=== PATIENT | male | born 1950 | race Caucasian/White ===

== ENCOUNTER → 2024-07-12 08:11 | Outpatient (REF) | payer MEDICARE, SELFPAY ==
[2024-07-12 09:27] LABS: % Basophils 0.5 % (0-2); % Eosinophils 2.7 % (0-6); % Immature Granulocytes 0.2 % (0-0.5); % Lymphocytes 32.8 % (20.5-51.1); % Monocytes 12.9 % (1.7-9.3); % Neutrophils 50.9 % (42.2-75.2); Absolute Eosinophils 0.2 10^3/uL (0-0.7); Absolute Lymphocytes 1.8 10^3/uL (1.2-3.4); Absolute Monocytes 0.7 10^3/uL (0.1-0.6); Absolute Neutrophils 2.8 10^3/uL (1.4-6.5); Hematocrit 45.8 % (39.0-52.0); Mean Corp Hgb Conc. 34.9 g/dL (33.0-37.0); Mean Corpuscular Hgb 30.6 pg (27.0-31.0); Mean Corpuscular Volume 87.6 fL (80.0-94.0); Mean Platelet Volume 11.3 fL (7.4-10.4); Nucleated Red Blood Cells % 0 % (-); Platelet Count 195 10^3/uL (130-400); Red Blood Cell Count 5.23 10^6/uL (4.70-6.10); Red Cell Dist. Width 12.8 % (11.5-14.5); White Blood Cell Count 5.5 10^3/uL (4.8-10.8)
[2024-07-12 10:47] LABS: ALT (SGPT) 45 U/L (0-50); AST (SGOT) 41 U/L (17-59); Albumin 4.5 g/dl (3.5-5.0); Alkaline Phosphatase 53 U/L (38-126); Blood Urea Nitrogen 27 mg/dl (9-20); Calcium 9.5 mg/dl (8.4-10.2); Carbon Dioxide 25 mmol/L (22-30); Chloride 105 mmol/L (98-107); Glucose 120 mg/dl (70-99); HDL Cholesterol 49 mg/dl; LDL Cholesterol, Calculated 57 mg/dl; Potassium 4.8 mmol/L (3.5-5.1); Sodium 138 mmol/L (135-145); Total Bilirubin 1.1 mg/dl (0.2-1.3); Total Cholesterol 123 mg/dl (50-199); Total Protein 7.1 g/dl (6.3-8.2); Triglyceride 89 mg/dl (10-149); Very Low Density Lipoprotein 17 mg/dl (0-30); eGFR > 60.00
[2024-07-12 10:53] LABS: Glycohemoglobin (HgbA1c) 6.1 % (4.0-5.6)
[2024-07-12 11:09] LABS: PSA, Total - Screen 0.61 ng/ml (0.0-4.0); TSH 1.12 uIU/ml (0.47-4.68)
== END ==
LOC: REG 08:11
PROVIDERS: ATTENDING PHYSICIAN Family Medicine
DX: I10 Essential (primary) hypertension (principal); E78.5 Hyperlipidemia, unspecified; Z12.5 Encounter for screening for malignant neoplasm of prostate
CPT/HCPCS: 36415; 80053; 80061; 83036; 84443; 85025; G0103

== ENCOUNTER 2025-06-02 15:33 | Inpatient (IN) | payer MEDICARE, SELFPAY ==
[2025-06-02] VITALS (11 sets, daily range): BP systolic 122–168; BP diastolic 88–152; BMI 34.9; BMI 33.8
--- NOTE | 2025-06-02 11:01 | ED.GENMED ---
History of Present Illness
<Candace Arvizu PA-C - Last Filed: 06/02/25 16:10>
General
Chief Complaint: Numbness
Source: patient
Exam Limitations: none
Time Seen by Provider: 06/02/25 10:24
Nursing documentation reviewed up to this point in time: agreed with
History of Present Illness
History of Present Illness:
pt is a 74 y/o M with h/o HTN, HLD, alcohol use
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 then he
suddenly said the arm dropped ot his side (was weak) and had involuntary movements for about 2-3 minutes and fully resolved
he never had neck pain, headache, cp, sob etc
yesterday was fine
today again while at his computer but not while leaning on his L arm he started feeling the numbness again in the forearm into the hand
got up and moved to another chair and had the same thing happen, arm got weak, fell to his side and slid off and then started moving on its own 2-3 minutes
now fully resolved
feels fine
no headache, neck pain/neuro symptoms, gait problems
Past History
<Candace Arvizu PA-C - Last Filed: 06/02/25 16:10>
Past History
ED Past Medical History: HTN and Hypercholesterolemia
ED Past Surgical History: None
Social History
Tobacco: Non-smoker
Alcohol: Occasional (several nights a week)
Drug: None
Personal:
Living: with family
Review of Systems
<Candace Arvizu PA-C - Last Filed: 06/02/25 16:10>
Review of Systems
Allergies reviewed?: Yes
All Other Systems: Not applicable
Phy Exam
<Candace Arvizu PA-C - Last Filed: 06/02/25 16:10>
Physical Exam
Physical Exam:
GENERAL: Alert , in no apparent distress
HEAD: NCAT
EYE: pupils equal and reactive, no nystagmus, minimal photophobia
NECK: Supple,full rom, nontender
ENT: o/p clr, mmm.
CARDIAC: Regular rate and rhythm . no edema
LUNGS: Clear breath sounds bilaterally, no acute respiratory distress, no wheezes/rales/rhonchi
ABDOMEN: Soft, without focal tenderness, no r/g, no cvat
NEUROLOGICAL: Alert and orientedx 4, cn intact, no facial asymmetry, 5/5 strength in UE/LE, sensation intact, romberg neg, ambulates without assistance, neg pronator drift 2+ brachial and achilles reflexes
SKIN: Warm and dry, skin intact.
psoriasis rash plaques with scale to b/l elbows/knees extensor surfaces
MUSCULOSKELETAL: normal insepction, full rom notneder
PSYCH: Normal and appropriate interaction.
Course
<Candace Arvizu PA-C - Last Filed: 06/02/25 16:10>
Orders/Labs/Results
Orders:
Orders
06/02/25 10:49
Cardiac Monitoring- Treatment ONCE
06/02/25 10:52
Electrocardiogram (*1) Stat
Reason for Study: Other
Other Reason for Exam: Headache
EKG- Treatment ONCE
06/02/25 10:53
CT Head W/o Iv Contrast Urgent
Comment:
Reason For Exam: L arm numbness/weakness/twitching
06/02/25 11:50
CPK [Creatine Phosphokinase] Urgent
Complete Blood Count/With Diff Urgent
Comprehensive Metabolic Panel Urgent
Lyme Progressive Urgent
TSH Reflex To Free T4 Urgent
06/02/25 14:45
CARDIOLOGY CONSULT Routine
Consulting Provider: Oswaldo Kumar
Was physician already notified: Yes
NEUROLOGY CONSULT Routine
Consulting Provider: Leobardo Bridges
Was physician already notified: Yes
06/02/25 15:02
Admit/Transfer Patient As Directed
Co-Sign Provider:
Level of Care: Inpatient admission
Assign to:: Telemetry
[facility]
Reason for Telemetry: Arrhythmia
Date to Stop Telemetry: 06/05/25
Time to Stop Telemetry: 11:00
Reason for Hospitalization: possible CVA, new onset a. Fib
Expected length of stay greater than two midnights?: Yes
ELOS- Estimated Length of Stay in days: 2
I certify the patient meets the requirements for IP care: Yes
Heparin Protocol- PTT Orders As Directed
PTT per Heparin protocol: -Obtain CBC and baseline PTT - if not already collected.
-Obtain PTT 6 hours from start of infusion. Then, every 6 hours until 2 consecutive
PTT's are therapeutic. Then, PTT Daily.
-With each rate change, obtain PTT every 6 hours until 2 consecutive PTT's are
therapeutic. Then, PTT Daily.
Notify MD As Directed
Notify physician if: PTT is greater than or equal to 200.
PRN Pain Medication Management As Directed
May give lesser potent ordered pain med per pt: Yes
preference::
Protocol:: Medication orders for pain may be administered in a
manner that supports deferring to patient preference
when the pt is:
- Requesting an ordered lesser potent pain medication.
Least to most potent pain medications are defined
as: acetaminophen < NSAID < tramadol < opioids
(morphine, oxycodone, hydromorphone).
- Requesting a lesser dose of the same medication IF
ORDERED.
- Requesting a less intrusive route of administration
if both routes are prescribed by the provider (PO <
IV).
06/02/25 15:03
Code Status As Directed
Resuscitation Status: Full Code
06/02/25 15:12
Metoprolol [Lopressor] 25 mg PO NOW STA
06/02/25 15:15
Heparin 74056 Units/250 ml 25,000 units in 250 ml IV PER PROTOCOL
Weight to be used for heparin protocol in kilograms (kg):: 104
Protocol:: Cardiac Tx/Acute Coronary
PTT Goal Range to be used:: PTT 73 to 111 seconds
Order type:: Initial
INITIAL Infusion Dose (UNITS/KG/hr) & then follow protocol:: 12 units/kg/hr
Infusion Dose in UNITS/hr & then follow protocol (UNITS/hr):: 1,000
INFUSION RATE in mL/hr & then follow protocol (mL/hr):: 10
PTT less than or equal to 64 seconds:: Increase rate by 200 units/hr (+ 2 mL/hr)
PTT 64.1 to 72.9 seconds:: Increase rate by 100 units/hr (+ 1 mL/hr)
PTT 73 to 111 seconds:: Target Range. No change in rate.
PTT 111.1 to 130.9 seconds:: Decrease rate by 100 units/hr (- 1 mL/hr)
PTT 131 to 199.9 seconds:: HOLD for 1 hr. Then decrease rate by 200 units/hr (- 2 mL/hr)
PTT greater than or equal to 200 seconds:: HOLD for 2 hrs & Notify Provider. Then decrease by 200 units/hr (-
2 mL/hr)
Lab follow-up:: Each change, PTT q6h until 2 consecutive are therapeutic. Then PTT
daily.
06/02/25 15:47
PTT Urgent
Comment: Obtain baseline before beginning heparin infusion if not already collected
06/05/25 11:00
DC Protocol for Telemetry ONCE
Abnormal Lab Results
06/02/25
11:50
MPV 10.5 H fL
(7.4-10.4)
Absolute Monos (auto) 0.7 H 10^3/uL
(0.1-0.6)
Lymphocytes % 18.7 L %
(20.5-51.1)
Chloride 108 H mmol/L
(98-107)
Glucose 133 H mg/dl
(70-99)
Creatine Kinase 246 H U/L
(55-170)
06/02/25 11:50
06/02/25 11:50
Vital Signs
Initial and Last Documented VS:
Initial Vital Signs
Temp Pulse Resp Pulse Ox
36.6 C 69 18 97
06/02/25 10:12 06/02/25 10:12 06/02/25 10:12 06/02/25 10:12
Last Documented Vital Signs
Temp Pulse Resp BP Pulse Ox
36.6 C 91 18 122/88 98
06/02/25 10:12 06/02/25 14:45 06/02/25 14:45 06/02/25 14:17 06/02/25 14:45
<Sarah Schwartz MD - Last Filed: 06/02/25 12:49>
Orders/Labs/Results
Orders:
Orders
06/02/25 10:49
Cardiac Monitoring- Treatment ONCE
06/02/25 10:52
Electrocardiogram (*1) Stat
Reason for Study: Other
Other Reason for Exam: Headache
EKG- Treatment ONCE
06/02/25 10:53
CT Head W/o Iv Contrast Urgent
Comment:
Reason For Exam: L arm numbness/weakness/twitching
06/02/25 11:50
CPK [Creatine Phosphokinase] Urgent
Complete Blood Count/With Diff Urgent
Comprehensive Metabolic Panel Urgent
Lyme Progressive Urgent
TSH Reflex To Free T4 Urgent
06/02/25 14:45
CARDIOLOGY CONSULT Routine
Consulting Provider: Oswaldo Kumar
Was physician already notified: Yes
NEUROLOGY CONSULT Routine
Consulting Provider: Leobardo Bridges
Was physician already notified: Yes
06/02/25 15:02
Admit/Transfer Patient As Directed
Co-Sign Provider:
Level of Care: Inpatient admission
Assign to:: Telemetry
Physician / Group: [facility] - hospitalists
Diagnosis: [facility] - hospitalists
Reason for Telemetry: Arrhythmia
Date to Stop Telemetry: 06/05/25
Time to Stop Telemetry: 11:00
Reason for Hospitalization: possible CVA, new onset a. Fib
Expected length of stay greater than two midnights?: Yes
ELOS- Estimated Length of Stay in days: 2
I certify the patient meets the requirements for IP care: Yes
Heparin Protocol- PTT Orders As Directed
PTT per Heparin protocol: -Obtain CBC and baseline PTT - if not already collected.
-Obtain PTT 6 hours from start of infusion. Then, every 6 hours until 2 consecutive
PTT's are therapeutic. Then, PTT Daily.
-With each rate change, obtain PTT every 6 hours until 2 consecutive PTT's are
therapeutic. Then, PTT Daily.
Notify MD As Directed
Notify physician if: PTT is greater than or equal to 200.
PRN Pain Medication Management As Directed
May give lesser potent ordered pain med per pt: Yes
preference::
Protocol:: Medication orders for pain may be administered in a
manner that supports deferring to patient preference
when the pt is:
- Requesting an ordered lesser potent pain medication.
Least to most potent pain medications are defined
as: acetaminophen < NSAID < tramadol < opioids
(morphine, oxycodone, hydromorphone).
- Requesting a lesser dose of the same medication IF
ORDERED.
- Requesting a less intrusive route of administration
if both routes are prescribed by the provider (PO <
IV).
06/02/25 15:03
Code Status As Directed
Resuscitation Status: Full Code
06/02/25 15:12
Metoprolol [Lopressor] 25 mg PO NOW STA
06/02/25 15:15
Heparin 96864 Units/250 ml 25,000 units in 250 ml IV PER PROTOCOL
Weight to be used for heparin protocol in kilograms (kg):: 104
Protocol:: Cardiac Tx/Acute Coronary
PTT Goal Range to be used:: PTT 73 to 111 seconds
Order type:: Initial
INITIAL Infusion Dose (UNITS/KG/hr) & then follow protocol:: 12 units/kg/hr
Infusion Dose in UNITS/hr & then follow protocol (UNITS/hr):: 1,000
INFUSION RATE in mL/hr & then follow protocol (mL/hr):: 10
PTT less than or equal to 64 seconds:: Increase rate by 200 units/hr (+ 2 mL/hr)
PTT 64.1 to 72.9 seconds:: Increase rate by 100 units/hr (+ 1 mL/hr)
PTT 73 to 111 seconds:: Target Range. No change in rate.
PTT 111.1 to 130.9 seconds:: Decrease rate by 100 units/hr (- 1 mL/hr)
PTT 131 to 199.9 seconds:: HOLD for 1 hr. Then decrease rate by 200 units/hr (- 2 mL/hr)
PTT greater than or equal to 200 seconds:: HOLD for 2 hrs & Notify Provider. Then decrease by 200 units/hr (-
2 mL/hr)
Lab follow-up:: Each change, PTT q6h until 2 consecutive are therapeutic. Then PTT
daily.
06/02/25 15:47
PTT Urgent
Comment: Obtain baseline before beginning heparin infusion if not already collected
06/05/25 11:00
DC Protocol for Telemetry ONCE
Abnormal Lab Results
06/02/25
11:50
MPV 10.5 H fL
(7.4-10.4)
Absolute Monos (auto) 0.7 H 10^3/uL
(0.1-0.6)
Lymphocytes % 18.7 L %
(20.5-51.1)
Chloride 108 H mmol/L
(98-107)
Glucose 133 H mg/dl
(70-99)
Creatine Kinase 246 H U/L
(55-170)
06/02/25 11:50
06/02/25 11:50
Vital Signs
Initial and Last Documented VS:
Initial Vital Signs
Temp Pulse Resp Pulse Ox
36.6 C 69 18 97
06/02/25 10:12 06/02/25 10:12 06/02/25 10:12 06/02/25 10:12
Last Documented Vital Signs
Temp Pulse Resp BP Pulse Ox
36.6 C 91 18 122/88 98
06/02/25 10:12 06/02/25 14:45 06/02/25 14:45 06/02/25 14:17 06/02/25 14:45
<Candace Arvizu PA-C - Last Filed: 06/02/25 16:10>
MDM/Problems Addressed
Differential Diagnosis Includes:
stroke, seizure, mass, neuoprathy
MDM/Problems Addressed:
74 y/o M
htn, hld
2 episodes of L arm paretsheias with weakness and involuntary movements lasting 3 minutes
no headache/neck pain
on exam he has full rom, full sensation, no weakness, no spasms, no swelling, NV intact
pt has no lasting symptoms
he looks well
unfortunately he is in rate controlled AF making possibility of embolic event more likely
he is unwarwe he was in AF
pt has neg head ct
the involuntary movement could be partial complex seizure
d/w neurologist
will admit for MRI and EEG; will ikhenryl need AC.
<Candace Arvizu PA-C - Last Filed: 06/02/25 16:10>
*Pulse Oximetry
SaO2: 97
Patient hypoxic: no (98)
*Critical Care Note
Total Time (30-74mins, 75-104mins- exclusive of procedures): Not Applicable
ED Attending Note
<Candace Arvizu PA-C - Last Filed: 06/02/25 16:10>
-
Portions of this chart may have been created with voice recognition software.� Occasional wrong word or��sound alike� substitutions may have occurred due to the inherent limitations of voice recognition software.
<Sarah Schwartz MD - Last Filed: 06/02/25 12:49>
ED Attending Note
Patient seen and examined by attending physician: Yes
I performed the substantive portion of visit, reviewed & personally made and approve the management plan that is documented in note by myself or CJ.: Yes
ED Attending Note:
Patient appears awake, alert and is comfortable. Lungs are clear. Has a normal neurological exam. Excellent strength and sensation bilaterally
Discharge Plan
Departure
Patient Disposition: Admit
Date of Disposition: 06/02/25
Time of Disposition: 13:31
Admit to: Telemetry
Presentation/result/management discussed w/ accepting MD/DO: Hospitalist
Condition: Fair
Covid-19: Not Applicable
Discharge Problem:
Atrial fibrillation, new onset, Paresthesia, Weakness
Interventions
Interventions:
*General Assessment Last Done: 06/02/25 11:41
*Neglect/Abuse Screening Last Done: 06/02/25 11:41
*ED COVID-19 Vaccine History Last Done: 06/02/25 11:43
ED- Neurological Assessment Last Done: 06/02/25 12:03
[2025-06-02 12:11] LABS: Hematocrit 48.5 % (39.0-52.0); Hemoglobin 17.0 g/dL (13.0-18.0); Mean Corp Hgb Conc. 35.1 g/dL (33.0-37.0); Mean Corpuscular Volume 85.5 fL (80.0-94.0); Nucleated Red Blood Cells % 0 % (-); Platelet Count 209 10^3/uL (130-400); Red Cell Dist. Width 13.2 % (11.5-14.5)
[2025-06-02 12:28] LABS: ALT (SGPT) 30 U/L (0-50); AST (SGOT) 26 U/L (17-59); Albumin 4.4 g/dl (3.5-5.0); Alkaline Phosphatase 50 U/L (38-126); Blood Urea Nitrogen 16 mg/dl (9-20); Calcium 9.4 mg/dl (8.4-10.2); Carbon Dioxide 23 mmol/L (22-30); Chloride 108 mmol/L (98-107); Estimated Creatinine Clearance 93 ml/min; Glucose 133 mg/dl (70-99); Potassium 4.4 mmol/L (3.5-5.1); Sodium 139 mmol/L (135-145); Total Protein 7.3 g/dl (6.3-8.2); eGFR > 60.00
--- NOTE | 2025-06-02 14:42 | HPS.HSE ---
Family Physician
-
Family Physician: Hien Ortiz
Chief Complaint
-
LUE numbness
new A. Fib
History of Present Illness
74 y/o M, hx of HTN, HLD presents to ER with intermittent L arm numbness. Patient reports symptoms began 2 days ago. He was seated and leaning the L arm against a computer chair while working. Suddenly, he developed L arm numbness. He moved to a
recliner and rested his arm. He noted his arm dropping with weakness and have involvulnary movements for 2-3 minutes. Symptoms resolved. Today again, he developed similar symptoms but this time was not leaning his arm against a chair. Symptoms
persisted and were recurrent. At present symptoms are resolved. Denies headache/neck pain/ no issues with vision/gait. Does reports prior history of aspiration x 2 events. Also in ER found to have new onset A. Fib. He reports no prior history of
cardiac rhythm issues but does recall an episode of 'jumping out of my chest' ~ 2 years ago and also reports fatigue progressively over 3 months. Denies chest pain or SOB. No other complaints.
Medical History
Past Medical History
Past Medical History: Reports Other (HTN, HLD)
Past Surgical History: Reports None
Social History
Unable to obtain full social history at this time due to: Dementia
Tobacco: Non-smoker
Alcohol: Occasional
Drug: None
Personal:
Living: With Family
Employment: Retired
Family History
Family History: Not pertinent
Allergies / Home Medications
Allergies reflects when Allergies were last updated in [facility].
Home Medications with original date entered in [facility]
Allergy/Medication List:
Allergies
Allergy/AdvReac Type Severity Reaction Status Date / Time
No Known Allergies Allergy Verified 06/02/25 10:13
Home Medications
ibuprofen 200 mg tablet (Advil) 800 mg PO HS 10/05/19
losartan 50 mg tablet 50 mg PO HS 06/02/25
rosuvastatin 5 mg tablet 5 mg PO HS 06/02/25
Review of Systems
-
A 12 point ROS was completed and negative except as noted: Yes
Physical Exam
Vital Signs
Vital Signs
Temp Pulse Resp BP Pulse Ox
97.9 F 121 19 137/97 97
06/02/25 10:12 06/02/25 12:00 06/02/25 12:00 06/02/25 12:00 06/02/25 12:03
Physical Exam
General: No Apparent Distress
HEENT: NormoCephalic and Anicteric
Cardiac: Irregular Rhythm and Tachycardia
GI: Soft and Non Tender
Neuro: AO x 3
Psych: Calm
Laboratory Results
-
06/02/25 11:50
06/02/25 11:50
Laboratory Results
Total Bilirubin 1.2 mg/dl (0.2-1.3) 06/02/25 11:50
AST 26 U/L (17-59) 06/02/25 11:50
ALT 30 U/L (0-50) 06/02/25 11:50
Alkaline Phosphatase 50 U/L (38-126) 06/02/25 11:50
Data Reviewed
-
CT Scan: Report Reviewed by me
Lab Data: Labs Reviewed by me
Impression/Plan
-
Assessment:
LUE weakness/numbness
jerking activity associated with symptoms
- check EEG to evaluate seizure
- check MRI brain w/wo contrast
- given strong family history of CVA (father, grandfather), and new onset A. Fib, plan is to start anticoagulation after discussion with Neuro and Cardiology. CT head negative for bleed.
- check A1c
- check Lipids, continue statin, adjust dose if CVA confirmed
- Neuro consulted
- ST given prior report of aspiration
- eventual PT/OT evals
New onset Parox A.fib
- TSH normal
- start Lopressor 25mg BID; first dose now
- initiate IV heparin - requires intensive monitoring of PTTs, [id number] score at least 3 for age, HTN
- Echo
Essential HTN
- continue Losartan
HLD - statin
Elevated CPK level, unclear etiology
- check repeat in AM
DVT ppx: IV heparin
Code: Full
[2025-06-02] MEDS: HEPARIN 25000 UNITS/250 ML IV (16:02)
[2025-06-02] MEDS: LOPRESSOR 25 MG PO (16:03)
[2025-06-02 16:08] LABS: APTT 29.5 Sec (23.4-35.0)
--- NOTE | 2025-06-02 16:14 | CON.NEURO ---
Neuro Assessment/Plan
Assessment
Head CT imgs rev'd, normal
suspect afib caused a stroke which caused simple partial seizure
recommend anticoagulate immediately. heparin gtt
noncontrast MRI, MRA head/neck, EEG
Consultation
Order
Date of Consultation: 06/02/25
Requesting Provider: Mitzy Perea
Reason for Consult: stroke
Subjective/Objective
Subjective Data
Date of Service: June 02, 2025
from h&p:
74 y/o M, hx of HTN, HLD presents to ER with intermittent L arm numbness. Patient reports symptoms began 2 days ago. He was seated and leaning the L arm against a computer chair while working. Suddenly, he developed L arm numbness. He moved to a
recliner and rested his arm. He noted his arm dropping with weakness and have involvulnary movements for 2-3 minutes. Symptoms resolved. Today again, he developed similar symptoms but this time was not leaning his arm against a chair. Symptoms
persisted and were recurrent. At present symptoms are resolved. Denies headache/neck pain/ no issues with vision/gait. Does reports prior history of aspiration x 2 events. Also in ER found to have new onset A. Fib. He reports no prior history of
cardiac rhythm issues but does recall an episode of 'jumping out of my chest' ~ 2 years ago and also reports fatigue progressively over 3 months. Denies chest pain or SOB. No other complaints.
patient reports the tingling/numness, then weakness, then abnormal movements occurred in the same sequence both times.
Objective Data
Vital Signs
Temp Pulse Resp BP Pulse Ox
36.6 C 105 27 155/113 99
06/02/25 10:12 06/02/25 16:03 06/02/25 16:00 06/02/25 16:03 06/02/25 16:00
Lab Results
06/02/25 11:50
06/02/25 11:50
Sodium 139 mmol/L (135-145) 06/02/25 11:50
Potassium 4.4 mmol/L (3.5-5.1) 06/02/25 11:50
BUN 16 mg/dl (9-20) 06/02/25 11:50
Glucose 133 mg/dl (70-99) H 06/02/25 11:50
Calcium 9.4 mg/dl (8.4-10.2) 06/02/25 11:50
Patient Allergies
No Known Allergies Allergy (Verified 06/02/25 10:13)
Physical Exam
-
AAOx3, speech clear, language intact
VFF, EOMI, face symmetric
L pronator drift, subtle left sided weakness
L sided vibratory loss
Medications
-
Active Medications
Generic Name Dose Route Start Last Admin
Trade Name Freq PRN Reason Stop Dose Admin
Heparin Sodium 25,000 units in 250 mls @ 0 mls/hr 06/02/25 15:15 06/02/25 16:02
Heparin 23576 Units/250 Ml IV 250 mls
PER PROTOCOL GLENYS Administration
Protocol
Per Protocol
Home Medications
�Medication �Instructions �Recorded
ibuprofen 200 mg tablet (Advil) 800 mg PO HS 10/05/19
losartan 50 mg tablet 50 mg PO HS 06/02/25
rosuvastatin 5 mg tablet 5 mg PO HS 06/02/25
--- NOTE | 2025-06-02 18:02 | PTCARENOTE ---
pt arrived from ED with heparin drip at 10 mls/hr, pt a/o x3, able to ambulate to bed, vital signs taken, heart monitor applied.
--- NOTE | 2025-06-02 19:21 | CON.CAR ---
Consultation
Consultation Request
Date/Time Consultation Requested: 06/02/2025 15: 00
Date/Time Consultation Performed: 06/02/2025 19: 00
Requesting Provider: Brit
Performing Provider: Stacy
Reason for Consultation: Atrial fibrillation
Medical History
-
Chief Complaint: Left arm numbness and weakness
History of Present Illness:
Nicanor has a history of hypertension, hyperlipidemia. He presents with left arm numbness and weakness. He noted left arm numbness and weakness on 05/31/2025 lasting 30 minutes. This recurred earlier today and again lasted 30 minutes. He is felt to
have possible CVA versus TIA. Was found to be in A-fib. Of note he denies any chest pain, short of breath, or palpitations
Past Medical History
Past Medical History: HTN and Hypercholesterolemia
Past Surgical History: Tonsilectomy
Social History
Tobacco: Non-Smoker
Alcohol: Daily
Drug: None
Personal:
Living: With Family
Employment: Retired
Family History
Family History: Other (Father of CVA at age 70, mother in her 90s and had lung cancer)
Allergies / Home Medications
Allergy/AdvReac Type Severity Reaction Status Date / Time
No Known Allergies Allergy Verified 06/02/25 10:13
�Medication �Instructions �Recorded �Confirmed �Type
ibuprofen 200 mg tablet (Advil) 800 mg PO HS 10/05/19 06/02/25 History
losartan 50 mg tablet 50 mg PO HS 06/02/25 06/02/25 History
rosuvastatin 5 mg tablet 5 mg PO HS 06/02/25 06/02/25 History
Review of Systems
-
History Source: Patient
All other systems: Negative unless noted
Constitutional: No Symptoms
EENT: No Symptoms
Respiratory: No Symptoms
Cardiac: No Symptoms
Abdomen/GI: No Symptoms
: No Symptoms
Musculoskeletal: No Symptoms
Skin: No Symptoms
Neurological: Weakness and Numbness (Of left arm on 05/31/2025 and 06/02/2025 lasting 30 minutes)
Endocrine: No Symptoms
Hematologic/Lymphatic: No Symptoms
Physical Exam
Vital Signs
Temp Pulse Resp BP Pulse Ox
97.7 F 81 16 163/91 97
06/02/25 17:41 06/02/25 17:41 06/02/25 17:41 06/02/25 17:41 06/02/25 17:41
Lab Results
06/02/25 11:50
06/02/25 11:50
General: Well developed, well nourished in NAD.
Neck: Supple, no JVD, HJR, carotids +2 B/L, no bruits bilaterally.
Heart: Non displaced PMI, irregular, no murmurs, No S3, S4, no rubs.
Lungs: Clear to auscultation bilaterally, no wheeze, rhonchi, rubs bilaterally,
normal expiratory phase.
Abdomen: Normal bowel sounds, soft, non-tender, non-distended.
Extremities: No clubbing, cyanosis or edema bilaterally.
Neuro: Grossly nonfocal, awake, alert and oriented x3.
Impression / Plan
-
Impression:
Atrial fibrillation
Left upper extremity weakness/numbness
Possible seizure
History of hypertension
Hyperlipidemia
Stress echo June 2022: Negative at 6.5 mets
Plan:
He presents with symptoms as well possible TIA versus CVA
He is on IV heparin now and symptoms seem to have resolved
He is in atrial fibrillation which appears to be asymptomatic
Will continue Lopressor for rate control and anticoagulation with heparin until neurology approves Eliquis or Xarelto.
Will check echocardiogram
Will consider outpatient cardioversion in 4 weeks if remains in A-fib and faithfully takes anticoagulation
Data Reviewed
-
EKG: Tracing Personally Visualized and interpreted
Radiology: Report Reviewed by me
CT Scan: Report Reviewed by me
Medical Tests (Nuc Med, Echo etc): Report Reviewed by me
Labs: Labs Reviewed by me
Old Records: Reviewed
[2025-06-02] MEDS: COZAAR 50 MG PO (20:15)
[2025-06-02] MEDS: LOPRESSOR 12.5 MG PO (20:16)
[2025-06-02] MEDS: CRESTOR 5 MG PO (20:17)
[2025-06-02 22:11] LABS: APTT 51.7 Sec (23.4-35.0)
[2025-06-03] VITALS (9 sets, daily range): BP systolic 121–155; BP diastolic 76–96; PULSE 89–133; O2SAT 96
[2025-06-03 05:15] LABS: Hematocrit 47.2 % (39.0-52.0); Hemoglobin 16.3 g/dL (13.0-18.0); Mean Corp Hgb Conc. 34.5 g/dL (33.0-37.0); Mean Corpuscular Volume 86.1 fL (80.0-94.0); Platelet Count 195 10^3/uL (130-400); Red Cell Dist. Width 13.1 % (11.5-14.5)
[2025-06-03 05:26] LABS: APTT 94.0 Sec (23.4-35.0)
[2025-06-03 05:42] LABS: Blood Urea Nitrogen 19 mg/dl (9-20); Calcium 9.2 mg/dl (8.4-10.2); Carbon Dioxide 24 mmol/L (22-30); Chloride 110 mmol/L (98-107); Estimated Creatinine Clearance 92 ml/min; Glucose 126 mg/dl (70-99); HDL Cholesterol 45 mg/dl; LDL Cholesterol, Calculated 32 mg/dl; Potassium 4.2 mmol/L (3.5-5.1); Sodium 138 mmol/L (135-145); Very Low Density Lipoprotein 14 mg/dl (0-30); eGFR > 60.00
--- NOTE | 2025-06-03 08:01 | W.PN.HOSP.TC ---
Addendum entered and electronically signed by Mitzy Perea MD 06/03/25 11:06:
transitioned to PO Eliquis
Original Note:
Today's Communication/Plan
-
MRI/MRA studies
monitor tele and continue rate control, IV heparin
EEG
Echo
Follow cards/neuro recs
rehab evals
Assessment / Plan
Assessment / Plan
Assessment:
LUE weakness/numbness
jerking activity associated with symptoms
- check EEG to evaluate possible simple partial seizure per Neurology
- check MRI brain w/wo contrast, MRA studies
- given strong family history of CVA (father, grandfather), and new onset A. Fib, plan is to start anticoagulation after discussion with Neuro and Cardiology. CT head negative for bleed.
- check A1c
- LDL 32, continue statin, adjust dose if CVA confirmed
- Neuro following
- ST given prior report of aspiration
- eventual PT/OT evals
New onset Parox A.fib
- TSH normal
- continue Lopressor 25mg BID
- initiate IV heparin - requires intensive monitoring of PTTs, VPTMU3Stgb score at least 3 for age, HTN. Eventual OAC when cleared by Neurology
- Echo
- DCA cards
Essential HTN
- continue Losartan
HLD - statin
Elevated CPK level, unclear etiology
- repeat level normal
- monitor
DVT ppx: IV heparin
Code: Full
Anticipated Discharge: 24 - 48 hours
Subjective/Interval History
-
Date of Service: June 03, 2025
no further episodes of LUE weakness, numbness or jerking movements
denies sob or cp
Objective Data
-
Labs:
Laboratory Results
06/02/25 06/03/25 06/03/25
21:53 04:53 11:30
WBC 8.3
Hgb 16.3
Hct 47.2
Plt Count 195
APTT 51.7 H 94.0 H Pending
Sodium 138
Potassium 4.2
Chloride 110 H
Carbon Dioxide 24
BUN 19
Creatinine 0.8
Glucose 126 H
Calcium 9.2
Vital Signs:
Vital Signs
Temp Pulse Resp BP Pulse Ox
98.2 F 69 16 141/94 99
06/03/25 07:34 06/03/25 07:34 06/03/25 07:34 06/03/25 07:34 06/03/25 07:34
I&O
06/02/25 06/03/25 06/04/25
06:59 06:59 06:59
Intake Total 480 / 480
Balance 480 / 480
Physical Exam
-
General: No Apparent Distress
HEENT: Normocephalic and Atraumatic
Cardiac: Irregular Rhythm
GI: Soft and Nontender
Genito-urinary: No Costovertebral Tender
Neuro: AO x 3
Psych: Calm
Data Reviewed
-
Total Time Spent with Patient (in minutes): 51
Labs: Labs Reviewed by me
--- NOTE | 2025-06-03 08:19 | W.PN.CARDCBS ---
Today's Communication / Plan
-
Shortness of breath during the night
Check proBNP and chest x-ray as well as echocardiogram and consider IV Lasix
Heart rate control remains poor in A-fib will increase Lopressor
Change heparin to Eliquis per discussion with neurology and primary service
Impression / Plan
-
Impression:
Shortness of breath
Atrial fibrillation, duration unclear but perhaps as long as 3 months
Left upper extremity weakness/numbness/TIA versus CVA
Possible seizure
History of hypertension
Hyperlipidemia
Stress echo June 2022: Negative at 6.5 mets
Plan:
He had an episode of shortness of breath during the night
May be due to poorly controlled A-fib at times
Cannot exclude an element of CHF
Will increase Lopressor to 50 mg p.o. twice daily
Check proBNP and chest x-ray consider IV Lasix
Check echo in a.m.
Will consider outpatient cardioversion in 4 weeks if remains in A-fib and faithfully takes anticoagulation
Discussed with primary service and neurology and will start Eliquis and discontinue heparin
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
Subjective
Date of Service: June 03, 2025
He had some difficulty with shortness of breath during the night.
Objective
Labs:
06/03/25 04:53
06/03/25 04:53
Labs
Hgb 16.3 g/dL (13.0-18.0) 06/03/25 04:53
Hct 47.2 % (39.0-52.0) 06/03/25 04:53
Plt Count 195 10^3/uL (130-400) 06/03/25 04:53
APTT 94.0 Sec (23.4-35.0) H 06/03/25 04:53
Sodium 138 mmol/L (135-145) 06/03/25 04:53
Potassium 4.2 mmol/L (3.5-5.1) 06/03/25 04:53
BUN 19 mg/dl (9-20) 06/03/25 04:53
Creatinine 0.8 mg/dL (0.7-1.3) 06/03/25 04:53
Glucose 126 mg/dl (70-99) H 06/03/25 04:53
Vital Signs and I&O:
Vital Signs
Temp Pulse Resp BP Pulse Ox
98.2 F 69 16 141/94 99
06/03/25 07:34 06/03/25 07:34 06/03/25 07:34 06/03/25 07:34 06/03/25 07:34
Vital Signs
Temp Pulse Resp BP Pulse Ox
98.2 F 69 16 141/94 99
06/03/25 07:34 06/03/25 07:34 06/03/25 07:34 06/03/25 07:34 06/03/25 07:34
Intake & Output
06/01/25 06/02/25 06/03/25 06/04/25
06:59 06:59 06:59 06:59
Intake Total 480 / 480
Balance 480 / 480
Physical Exam
Physical Exam
General: Well developed, well nourished in NAD.
Neck: Supple, no JVD, HJR, carotids +2 B/L, no bruits bilaterally.
Heart: Non displaced PMI, irregular, no murmurs, No S3, S4, no rubs.
Lungs: Clear to auscultation bilaterally, no wheeze, rhonchi, rubs bilaterally,
normal expiratory phase.
Extremities: No clubbing, cyanosis or edema bilaterally.
Neuro: Grossly nonfocal, awake, alert and oriented x3.
[2025-06-03] MEDS: LOPRESSOR 50 MG PO ×2 (08:29→21:06)
[2025-06-03] MEDS: ELIQUIS 5 MG PO ×2 (08:29→21:06)
[2025-06-03 10:26] LABS: Glycohemoglobin (HgbA1c) 6.5 % (4.0-5.6)
[2025-06-03 11:55] LABS: APTT 59.9 Sec (23.4-35.0)
--- NOTE | 2025-06-03 13:53 | PTOTSP ---
Speech therapy
Presentation: Patient was oriented and cooperative. Patient's speech and language appeared to be WNL during conversation. Patient shared that he has some difficulty with word-finding for the past ~3 years which has become frustrating.
Swallowing Function: Patient was observed with several bites of regular consistency solids and sips (cup) of thin liquid in which patient appeared to tolerate as he did not exhibit any overt clinical s/sx of aspiration or difficulty with
mastication/ manipulation. Patient shared that he has had 'coughing and choking episodes' on his secretions (2x in the past ~6 months). During these 'episodes', patient is sitting in his chair and experiences a hard choking episode of his saliva in
the absence of PO. Given this is in the absence of PO, consider ENT consult.
Recommendations:
1) reg/ thin
2) aspiration precautions
3) Consider ENT consult
4) Consider outpatient ST
5) medications as tolerated
Plan: AUTOCUTTER will continue to follow to ensure tolerance; pending hospitalization.
--- NOTE | 2025-06-03 14:29 | CM ---
Reviewed the chart notes and spoke with the patient and his spouse at the bedside. The patient resides with his spouse in a one story home with two steps to enter. The patient reports no DME/VN/SNF in the past. The patient confirmed his pharmacy
of choice is [facility]. CM continues to be available to patient/family and is monitoring medical plan for needs at discharge.
Plan: Discharge to home when medically stable. No needs anticipated at this time.
--- NOTE | 2025-06-03 21:36 | W.PN.NEURO.1 ---
Today's Communication / Plan
-
EEG, ECHO, Eliquis
Neuro Assessment/Plan
Assessment
Head CT imgs rev'd, normal
MRI brain imgs and report reviewed, discussed with radiologist, 3mm focus of FLAIR signal with enhancement, could represent subacute stroke or prominent cortical vein; 8-12 week follow up
on DWI there is a dot of increased signal right frontal cortex which would make sense for my localization though radiologist believes it is artifact
suspect afib caused a stroke which caused simple partial seizure, or this could be TIA. the possibilities I discussed with patient though academic; in either case he needs Eliquis, and if simple partial seizure would not treat. we discussed the
incidental finding and he is agreeable to speak with his PCP to get a follow up MRI with contrast to ensure stability/resolution
Subjective/Objective
Subjective Data
Date of Service: June 03, 2025
feeling well
Objective Data
Vital Signs
Temp Pulse Resp BP Pulse Ox
36.4 C 91 18 137/76 98
06/03/25 19:50 06/03/25 21:06 06/03/25 19:50 06/03/25 21:06 06/03/25 19:50
Lab Results
06/03/25 04:53
06/03/25 04:53
APTT 59.9 Sec (23.4-35.0) H 06/03/25 11:21
Sodium 138 mmol/L (135-145) 06/03/25 04:53
Potassium 4.2 mmol/L (3.5-5.1) 06/03/25 04:53
BUN 19 mg/dl (9-20) 06/03/25 04:53
Glucose 126 mg/dl (70-99) H 06/03/25 04:53
Calcium 9.2 mg/dl (8.4-10.2) 06/03/25 04:53
Pet-H-Fdbfgqvnwwt Pept Cancelled 06/03/25 08:16
LDL Cholesterol, Calc 32 mg/dl 06/03/25 04:53
Patient Allergies
No Known Allergies Allergy (Verified 06/02/25 10:13)
[2025-06-03] MEDS: COZAAR 50 MG PO (22:07)
[2025-06-03] MEDS: CRESTOR 5 MG PO (22:07)
[2025-06-04 03:09] VITALS: BP 119/84
[2025-06-04 07:51] LABS: Blood Urea Nitrogen 20 mg/dl (9-20); Calcium 9.2 mg/dl (8.4-10.2); Carbon Dioxide 21 mmol/L (22-30); Chloride 107 mmol/L (98-107); Estimated Creatinine Clearance 82 ml/min; Glucose 118 mg/dl (70-99); Potassium 4.4 mmol/L (3.5-5.1); Sodium 137 mmol/L (135-145); eGFR > 60.00
[2025-06-04 08:07] VITALS: BP 149/82
[2025-06-04] MEDS: LOPRESSOR 50 MG PO (09:15)
[2025-06-04] MEDS: ELIQUIS 5 MG PO (09:16)
--- NOTE | 2025-06-04 11:19 | W.PN.HOSP.TC ---
Addendum entered and electronically signed by Jessica Landry MD 06/04/25 16:00:
total DC time 40 min
Original Note:
Today's Communication/Plan
-
see A/P
Assessment / Plan
Assessment / Plan
A/P:
# LUE weakness/numbness
# Jerking activity associated with symptoms
Follow up EEG report
MRI brain noted 3mm focus of FLAIR signal with enhancement posterior right occipital lobe, could represent subacute stroke or prominent cortical vein; recc 8-12 week follow up
MRA WNL
A1C 6.5%
LDL 32, continue statin
Speech cleared for solid/thin liquid
PT: no skilled PT need
Neuro following
# New onset Parox A.fib
TSH normal
continue Lopressor, now 50 mg BID
Started Eliquis 5 mg BID
Await Echo
Appreciate Card input
# Essential HTN
continue Losartan
Added Lopressor, now 50 mg BID
# HLD - statin
# Mildly elevated CPK level, unclear etiology
repeat level normal
monitor
DVT ppx: Eliquis
Code: Full
DW Card
Anticipated Discharge: Within 24 hours
Subjective/Interval History
-
Date of Service: June 04, 2025
Objective Data
-
Labs:
Laboratory Results
06/04/25
06:52
Sodium 137
Potassium 4.4
Chloride 107
Carbon Dioxide 21 L
BUN 20
Creatinine 0.9
Glucose 118 H
Calcium 9.2
Vital Signs:
Vital Signs
Temp Pulse Resp BP Pulse Ox
36.8 C 63 14 149/82 96
06/04/25 08:07 06/04/25 09:15 06/04/25 08:07 06/04/25 09:15 06/04/25 08:07
I&O
06/03/25 06/04/25 06/05/25
06:59 06:59 06:59
Intake Total 1919
Balance 1919
Review of Systems
-
History Source: Patient
All other systems: Reviewed and negative
Physical Exam
-
General: Well Developed, Well Nourished, No Apparent Distress, Comfortable and Conversant
HEENT: Normocephalic and Atraumatic
Respiratory: Clear to Auscultation and Non Labored Respirations; Negative Accessory Resp Muscle Use
Cardiac: S1/S2 and Irregular Rhythm
GI: Soft and Nontender
Neuro: Awake and Alert
Psych: Calm and Intact Judgement/Insight
Data Reviewed
-
Labs: Labs Reviewed by me
--- NOTE | 2025-06-04 11:55 | CARDSERVLU ---
Echocardiogram with Lumason completed after protocol screening completed. Allergies verified.
Patent IV site: _rt hand___
IV site flushed with 0.9% NaCl pre and post administration.
Diluted bolus method utilized to enhance visualization of ventricular davis.
Total volume given: __2.5__ mL
Patient tolerated all procedures well without complications.
--- NOTE | 2025-06-04 13:06 | CM ---
Addendum entered by Tg Harrison 06/04/25 16:00:
IMM explained & in chart
PLAN: Home, no needs
family to transport
Original Note:
Patient seen at bedside
PT/OT eval no needs
PLAN: Home, when stable, no needs
[2025-06-04 13:59] LABS: Lyme Antibody Screen, EIA Negative (Negative)
--- NOTE | 2025-06-04 14:21 | W.PN.CARDCBS ---
Today's Communication / Plan
-
Stable cardiology status for discharge
Change Lopressor to Coreg
Consider cardioversion in 3 to 4 weeks if faithful with anticoagulation and hopefully this will improve ejection fraction
Impression / Plan
-
Impression:
Shortness of breath
Atrial fibrillation, duration unclear but perhaps as long as 3 months
Left upper extremity weakness/numbness/TIA versus CVA
Possible seizure
History of hypertension
Hyperlipidemia
Stress echo June 2022: Negative at 6.5 mets
Echocardiogram 06/04/2025: Ejection fraction 40 to 45%
Plan:
EF 40 to 45% on echo in A-fib
Will change Lopressor to Coreg
Stable cardiology status for discharge
There are no signs or symptoms of CHF with normal chest x-ray and relatively normal BNP
Will consider outpatient cardioversion in 4 weeks if remains in A-fib and faithfully takes anticoagulation
Discussed with primary service and will arrange follow-up
Progress Note - Route Contractor
Subjective
Date of Service: June 04, 2025
No complaints
Objective
Labs:
06/03/25 04:53
06/04/25 06:52
Labs
Hgb 16.3 g/dL (13.0-18.0) 06/03/25 04:53
Hct 47.2 % (39.0-52.0) 06/03/25 04:53
Plt Count 195 10^3/uL (130-400) 06/03/25 04:53
APTT 59.9 Sec (23.4-35.0) H 06/03/25 11:21
Sodium 137 mmol/L (135-145) 06/04/25 06:52
Potassium 4.4 mmol/L (3.5-5.1) 06/04/25 06:52
BUN 20 mg/dl (9-20) 06/04/25 06:52
Creatinine 0.9 mg/dL (0.7-1.3) 06/04/25 06:52
Glucose 118 mg/dl (70-99) H 06/04/25 06:52
Vital Signs and I&O:
Vital Signs
Temp Pulse Resp BP Pulse Ox
98.3 F 63 14 149/82 96
06/04/25 08:07 06/04/25 09:15 06/04/25 08:07 06/04/25 09:15 06/04/25 08:07
Vital Signs
Temp Pulse Resp BP Pulse Ox
98.3 F 63 14 149/82 96
06/04/25 08:07 06/04/25 09:15 06/04/25 08:07 06/04/25 09:15 06/04/25 08:07
Intake & Output
06/02/25 06/03/25 06/04/25 06/05/25
06:59 06:59 06:59 06:59
Intake Total 1919
Balance 1919
Physical Exam
Physical Exam
General: Well developed, well nourished in NAD.
--- NOTE | 2025-06-04 15:50 | W.DCSUMMARY ---
Discharge Summary
Discharge Data
Date of Admission: 06/02/25
Date of Discharge: 06/04/25
-
Pending Results: No
Hospital Course
Principal Diagnosis:
LUE weakness/numbness, with likely posterior right occipital lobe subacute stroke
New onset paroxysmal atrial fibrillation
Chronic Diagnoses:�
Essential hypertension
Hyperlipidemia
Prediabetes 6.5%
Consultations:�
Neurology
Cardiology
Procedures:�
None
Clinical course:�
This is a 74-year-old male, with past medical history as stated above, who presented with left arm weakness and abnormal movement.
Problem 1:
LUE weakness/numbness with jerking activity.
His EEG was unrevealing per neurology.
His MRI brain noted 3mm focus of FLAIR signal with enhancement posterior right occipital lobe, could represent subacute stroke or prominent cortical vein.
He has been informed to follow-up MRI brain in 12 weeks.
His MRA brain was WNL.
As part of the stroke workup, A1C was checked, which was 6.5%. He can continue with carb controlled diet going forward.
His LDL was at 32 and he can continue with Crestor 5 mg.
Problem 2:
New onset Parox A.fib.
His TSH is within normal limit at 0.94.
He was started with beta-aneta and was discharged with Coreg 6.25 mg twice daily.
He was also started with Eliquis 5 mg BID.
His echo noted mildly reduced EF at 40-45%.
He can follow-up with cardiology outpatient.
As for the rest of his medical problems, they were stable during his hospital stay.
Discharge Plan
-
Patient Disposition: Home (Routine Discharge)
Discharge Diagnosis/Procedures: LUE weakness/numbness;
MRI brain noted 3mm focus of FLAIR signal with enhancement posterior right occipital lobe, could represent subacute stroke or prominent cortical vein (check follow up MRI in 12 week with PCP);
New onset paroxysmal atrial fibrillation;
Essential hypertension;
Mildly reduced left ventricular systolic function with LV ejection fraction visually estimated 40-45%
Condition: Good
Diet: As tolerated, Low Fat, Low Cholesterol, Low Sodium and Diabetic, Carb Controlled
Activity: As tolerated
Driving Restrictions: As prior to admission
Others Tests: MRI brain in 12 weeks with your PCP
Referrals:
Hien Ortiz MD [Family Provider, Family Practice] - in less than 1 week
Oswaldo Kumar MD [Active, Cardiology] - 06/25/25 4:00 pm
Referral Note: You have an appointment to see Dr. Kumar's physician volleyball assistant coach, Bibi, at the [place] office on 06/25/2025 at 4 PM. You are then scheduled to see Dr. Kumar at the [place] office on 09/04/2025 at 1:40 PM. Please call [phone]
if you need to reschedule.-
Additional Discharge Medication Instructions: You were started with Coreg 6.25 mg twice daily and Eliquis 5 mg twice daily for your newly diagnosis of paroxysmal atrial fibrillation.
Prescriptions:
New
Eliquis 5 mg Tablet
5 mg PO BID Qty: 60 11RF
carvedilol 6.25 mg Tablet
6.25 mg PO BID Qty: 60 11RF
Continued
losartan 50 mg Tablet
50 mg PO HS
rosuvastatin 5 mg Tablet
5 mg PO HS
Discontinued
ibuprofen [Advil] 200 MG tablet
800 mg PO HS
Discharge Orders:
Discharge Patient (As Directed); Ordered 06/04/25
Ordered By: Jessica Ladnry
Discharge Date and Time
Print Language: NORTHERN IRISH
--- NOTE | 2025-06-04 16:24 | EEG.RPT ---
Electroencephalogram Report
Recording
Date of EE06/04/25
Type of EEG: Routine
Length of EEG recordin minutes
Done with Video Recording: Yes
Patient Status: Inpatient
Recording Conditions: Awake, Drowsy and Asleep
Hyperventilation Performed: No
Photic Stimulation Performed: Yes
Report
LESS THAN 1 HOUR EEG INTERPRETATION:
Unremarkable EEG for age
CLINICAL CORRELATION:
A normal EEG does not rule out a diagnosis of epilepsy. If clinical suspicion for seizure persists, a prolonged recording may be warranted.
Clinical correlation is advised.
METHODS:
A 21 channel digitized electroencephalogram (EEG) was performed using the 10/20 international system of electrode placement and one-lead of ECG recorded. The [employer] quantitative EEG system was utilized.
ELECTROENCEPHALOGRAPHER IMPRESSION(S):
Quality of study
Good
Background
There was an unremarkable anterior-posterior voltage gradient of alpha frequency.
With eye opening the background activity changed to a low voltage mixture of frequencies.
There were no significant asymmetries of background activity noted.
Sleep
Drowsiness present
Stage 1 present
Stage 2 present
Hyperventilation
No activation
Photic Stimulation
No activation
ECG
Normal sinus rhythm
== END 2025-06-04 15:53 | disposition home or self-care (01) | DRG 66 ==
LOC: 3 WEST ACU 15:33
PROVIDERS: Physician Assistant; ADMITTING PHYSICIAN Internal Medicine; ATTENDING PHYSICIAN Internal Medicine; CONSULT PHYSICIAN Internal Medicine Cardiovascular Disease; CONSULT PHYSICIAN Psychiatry & Neurology Clinical Neurophysiology; EMERGENCY PHYSICIAN Emergency Medicine; FAMILY PHYSICIAN Family Medicine
DX: I63.9 Cerebral infarction, unspecified (principal); I48.0 Paroxysmal atrial fibrillation; R73.03 Prediabetes; I10 Essential (primary) hypertension; E78.00 Pure hypercholesterolemia, unspecified; F03.90 Unspecified dementia, unspecified severity, without behavioral disturbance, psychotic disturbance, mood disturbance, and anxiety; Z82.3 Family history of stroke; Z80.1 Family history of malignant neoplasm of trachea, bronchus and lung
CPT/HCPCS: 70450; 70544; 70548; 70553; 71046; 80048; 80053; 80061; 82550; 83036; 83880; 84443; 85025; 85027; 85730; 86618; 92610; 93005; 93306; 95816; 96365; 97162; 97165; 99285; A9585; Q9950

== ENCOUNTER 2025-07-16 09:11 | Day surgery (SDC) | payer MEDICARE, SELFPAY ==
--- NOTE | 2025-07-16 11:02 | ITS.CL.CARDI ---
Lead Based Paint Technician - Cardioversion
Cardioversion
Procedure Report:
Date of Procedure: July 16 2025
Procedure: Cardioversion
Indication: Symptomatic atrial fibrillation
Performing Physician: Chencho Pollock DO, FACC
Technique: The patient was brought to the holding area. Signed informed consent was obtained. A time out was called and performed. The patient was anesthetized by the anesthesia service. Anticoagulation status was reviewed and appropriate. R2 pads
were placed anteriorly and posteriorly. A 200 J synchronized biphasic shock restored normal sinus rhythm without significant bradycardia. There were no complications.
Conclusion: Uncomplicated cardioversion from atrial fibrillation to sinus rhythm.
Recommendation: Routine post cardioversion care. Continue assisted anticoagulation.
--- NOTE | 2025-07-17 11:31 | ITS.CL.ABL ---
Railroad Signal And Switch Operator - Ablation
Ablation
Procedure Report:
ELECTROPHYSIOLOGY ABLATION STUDY
DATE:: July 17, 2025�����������������������������REFERRING: Dr. Nik Mccray
INDICATION: Persistent supraventricular tachycardia in the form of atrial fibrillation. As above
HISTORY: See H and P.��Status post cardioversion for symptomatic A-fib yesterday. Presents for pulmonary vein isolation
ANTIARRHYTHMIC DRUG: Carvedilol
PRE-PROCEDURE AMARILYS: No atrial thrombus on intracardiac ultrasound today
PRESENTING RHYTHM: Sinus bradycardia with frequent APD's
'TIME-OUT':��called and confirmed.
SEDATION/ANESTHESIA:��provided via the anesthesia department using general anesthesia (LMA).
INTRAVENOUS/ARTERIAL ACCESS:
Right femoral venous -8Fr
Left femoral venous - 8 Fr, 6 Fr
Ultrasound guidance for bilateral femoral vein access was utilized by me to obtain access with demonstration of normal anatomy
CHADS-VASC Score:
HAS-Bled Score
PROCEDURE:
1.��A decapolar CS catheter was placed within the CS for mapping and pacing.��This was also used as the reference catheter for the 3-D map.
2. The intracardiac ultrasound catheter was positioned in the RA to identify the FO for targeting of transseptal puncture, assist��in identification of the pulmonary vein ostia, monitoring pre and post ablation pulmonary vein flow velocities,
monitoring for 'bubble' formation during RF application as a sign of thermal injury,��and to monitor for pericardial effusion during mapping and ablation procedure.���Left atrial size, LV ejection fraction, and pulmonary vein flows were monitored
pre and post ablation procedure. The other valves were inspected and found to be free of significant regurgitation or stenosis.
3.��Half of the calculated heparin bolus was administered prior to the first transeptal puncture.��Transseptal puncture was performed to diagnose RA and LA pressure so that safety of LA mapping and ablation could be further assessed, and to access
the left atrium and pulmonary veins for mapping and ablation.��This entailed advancing an 16.8 Bahamian sheath, RF wire with dilator into the superior vena cava and withdrawing both (monitoring intracardiac ultrasound, fluoroscopy and tip pressure)
with the tip oriented toward the atrial septum.��The fossa ovalis was engaged (indicated by sudden displacement of the sheath tip as well as tenting of the fossa seen on intracardiac ultrasound).��Left atrial access required a pass with the
Brockenbrough needle extended.��Left atrial catheter position was confirmed by pressure monitoring (RA mean pressure 2 mm Hg and LA mean presure 6 mm Hg we hydrated intraprocedure 1250 cc and will continue hydration as long as he is able to pass
urine), LA saturation 99%),��as well as fluoroscopy.��The sheath was advanced over the dilator and positioned in the left atrium.��This procedure was repeated for the Agilis sheath.��The remainder of the calculated heparin bolus was administered and
heparin was
infused to maintain ACT at 300 -350 seconds throughout the case.
4.��RA pacing was performed via the proximal decapolar poles and LA pacing was performed via the distal decapolr poles.
5. A quadrapolar catheter was first positioned at the His position for His Bundle recording which was tagged via the 3-D Navex sytem, and then passed to the RVA for RV pacing and recording.
6. The Penta spline catheter and the grid catheter placed in each of the LIPV, LSPV, RSPV and the RIPV.��
7.��Next, a 3-D map was created using Navex.���A 3-D reconstructed CT image was compared to the 3-D Navex map to assist in anatomic interpretation, mapping and ablation.��The CT image and the NavX image were fused.
8. A total of 64 lesions were given in flower basket and all of pose. Initially all of pose in basket post all 4 pulmonary veins and then flower pose to the roof posterior wall and floor of the left atrium. Repeat mapping with the grid catheter
demonstrated continued area of connection on the roof just outside the left superior pulmonary vein with voltage into the superior ruth of the left veins. We addressed the distal ruth with all of the lesions and basket pose for the roof
posterior roof and posterior wall just outside the left superior pulmonary vein. 2 additional flower lesions were given to the left superior pulmonary vein roof junction. Repeat mapping with the grid catheter demonstrated entrance and exit block
in all 4 pulmonary veins as well as the roof posterior wall and floor of the left atrium. EP study post isolation did not demonstrate any inducible tachyarrhythmias.
9. EP study post isolation did not demonstrate any inducible tachyarrhythmia.
TOTAL FLOURO TIME: 14.1 minutes
TOTAL RF DURATION: 0 minutes
REVERSAL OF HEPARIN: 35 mg of protamine, slow IV administration
COMPLICATIONS:
None
Intracardiac US shows no pericardial effusion post ablation.
SUMMARY:��
Complex left atrial mapping and ablation.
Entrance and exit block confirmed in all 4 pulmonary veins as well as the roof posterior wall and floor of the left atrium.
RECOMMENDATIONS:
1. out of bed in 4 hours
2. Resume anticoagulation
3.��Will hydrate and holding area given the low left atrial pressure at beginning and end of case despite ongoing hydration
4.� Consider same-day discharge
Copy to: Dr. Nik Mccray
== END 2025-07-16 11:30 | disposition home or self-care (01) ==
LOC: CATH 09:11
PROVIDERS: ATTENDING PHYSICIAN Nuclear Medicine Nuclear Cardiology; FAMILY PHYSICIAN Family Medicine; OTHER PHYSICIAN Internal Medicine Cardiovascular Disease
DX: I48.0 Paroxysmal atrial fibrillation (principal); I42.9 Cardiomyopathy, unspecified; R06.02 Shortness of breath; I10 Essential (primary) hypertension; E78.5 Hyperlipidemia, unspecified; Z79.01 Long term (current) use of anticoagulants
CPT/HCPCS: 92960; 93005

== ENCOUNTER 2025-07-17 15:45 | Emergency (ER) | payer MEDICARE, SELFPAY ==
[2025-07-17 15:48] VITALS: BP 153/72
[2025-07-17 15:58] VITALS: BMI 35.9
--- NOTE | 2025-07-17 16:08 | ED.GENMED ---
History of Present Illness
General
Chief Complaint: Numbness
Source: patient and spouse
Exam Limitations: none
Time Seen by Provider: 07/17/25 16:03
Nursing documentation reviewed up to this point in time: agreed with
History of Present Illness
History of Present Illness:
Note:
CHIEF COMPLAINT(S)
Numbness in the left hand fingers.
HISTORY OF PRESENT ILLNESS
This is a 75-year-old male presenting with numbness in the fingers of his left hand. The patient reports a strange sensation similar to a previous episode that occurred over the June 01 weekend and necessitated a three-day hospital stay. During
that prior incident, the patient experienced involuntary movement and a transient drooping of the arm. However, in the current episode, the arm did not drop, and there was no involuntary movement noted. The patient describes frustration with the
recurring sensation that typically resolves quickly. 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
PHYSICAL EXAM
General: Alert, no acute distress.
Skin: Warm, dry.
Head: Normocephalic, atraumatic.
Neck: Supple, trachea midline.
Eye Ears, nose, mouth and throat: Oral mucosa moist.
Cardiovascular: Normal peripheral perfusion, No edema.
Respiratory: Respirations are non-labored.
Gastrointestinal: Abdomen nondistended.
Back: Normal range of motion, Normal alignment.
Musculoskeletal: Normal range of motion, normal strength.
Neurological: Alert and oriented to person, place, time, and situation, No focal neurological deficit observed.
Psychiatric: Cooperative, appropriate mood & affect.
PLAN
Obtain blood tests to assess for any underlying abnormalities.
DIFFERENTIAL DIAGNOSIS
The Differential Diagnosis includes, in no particular order and is not limited to:
- Transient ischemic attack
- Peripheral neuropathy
- Cervical radiculopathy
- Carpal tunnel syndrome
- Stroke
- Brachial plexus injury
- Diabetic neuropathy
- Multiple sclerosis
- Ulnar nerve entrapment
- Hypocalcemia
EKG
My independent EKG interpretation is:
- Time of EKG: Not specified
- Rhythm: Normal sinus rhythm with PACs (premature atrial contractions)
- Heart Rate: 73 bpm
- [place]: Normal axis
- Notable Intervals: Not specified
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
CARE-UPDATE
07/17/25 - 18:51
The patient reports no current symptoms, and recent MRI of the brain shows no acute changes or findings. The patient is stable for discharge and will continue on Eliquis and current antihypertensive medications. Follow-up with primary care is
advised.
Disposition:
SUMMARY OF ENCOUNTER
The patient, a 75-year-old male, presented with numbness in the fingers of his left hand reminiscent of a previous episode that required hospitalization. The patient recently underwent cardioversion and reports no current symptoms and no acute
neurological deficits. A recent CT of the head was normal. The patient remains stable and suitable for discharge. It was discussed with neurology that there are no acute abnormalities.
DISPOSITION
Discharge.
PLAN
The patient should continue taking apixaban (Eliquis) and follow up with their primary care provider.
INDEPENDENT REVIEW OF LABS AND INTERPRETATION OF TESTS
My independent EKG interpretation is normal sinus rhythm with premature atrial contractions, no acute abnormalities noted.
PATIENT EDUCATION AND COUNSELING
The patient was advised on the importance of follow-up care and medication adherence to prevent recurrent episodes.
FOLLOW-UP INSTRUCTIONS
The patient is instructed to follow up with primary care.
MEDICATION RECONCILIATION
- Continue taking apixaban (Eliquis) as prescribed.
MEDICAL DECISION MAKING
- Number and Complexity of Problems Addressed: Chronic conditions affecting care including possible transient ischemic attack, peripheral neuropathy, cervical radiculopathy, carpal tunnel syndrome, stroke, brachial plexus injury, diabetic
neuropathy, multiple sclerosis, ulnar nerve entrapment, and hypocalcemia.
- Data:
Category 1:
- The CT of the head was interpreted as normal, affirming no signs of acute neurological injury.
- My independent interpretation of the EKG showed normal rhythm without acute abnormalities.
Category 3:
- Discussion of management with neurology, confirming the absence of acute neurological abnormalities.
- Risk:
- Prescription medication management with apixaban and the potential risk of stroke recurrence underscore the necessity for close follow-up and monitoring.
DIAGNOSIS
- Transient Ischemic Attack (TIA) (G45.9) - suspected.
- Peripheral neuropathy (G60.9) - suspected.
Past History
Past History
ED Past Medical History: HTN and Hypercholesterolemia
ED Past Surgical History: None
Social History
Tobacco: Non-smoker
Alcohol: Occasional (several nights a week)
Drug: None
Personal:
Living: with family
Phy Exam
Physical Exam
Physical Exam:
.
Course
Orders/Labs/Results
Orders:
Orders
07/17/25 16:04
Electrocardiogram (*1) Urgent
Reason for Study: TIA/Stroke
EKG- Treatment ONCE
07/17/25 16:09
Electrocardiogram (*1) Stat
Reason for Study: Other
Other Reason for Exam: neuro symptoms
CT Head W/o Iv Contrast Urgent
Comment:
Reason For Exam: left hand numbness
Cardiac Monitoring- Treatment ONCE
EKG- Treatment ONCE
IV Insert/Care/Rem.- Treatment PRN
Pulse Ox/cont/shift [RESP] Stat
Quantity: 1
07/17/25 16:13
Complete Blood Count/With Diff Urgent
Comprehensive Metabolic Panel Urgent
PTT Urgent
Prothrombin Time Urgent
Abnormal Lab Results
07/17/25
16:13
WBC 13.7 H 10^3/uL
(4.8-10.8)
MPV 10.9 H fL
(7.4-10.4)
Abs Immat Gran (auto) 0.1 H 10^3/uL
(0-0.05)
Absolute Neuts (auto) 10.2 H 10^3/uL
(1.4-6.5)
Absolute Monos (auto) 1.3 H 10^3/uL
(0.1-0.6)
Lymphocytes % 14.0 L %
(20.5-51.1)
PT 15.0 H Sec
(11.4-14.6)
07/17/25 16:13
07/17/25 16:13
Vital Signs
Initial and Last Documented VS:
Initial Vital Signs
Temp Pulse Resp BP Pulse Ox
98.8 F 67 18 153/72 97
07/17/25 15:48 07/17/25 15:48 07/17/25 15:48 07/17/25 15:48 07/17/25 15:48
Last Documented Vital Signs
Temp Pulse Resp BP Pulse Ox
98.8 F 67 21 148/86 98
07/17/25 15:48 07/17/25 18:28 07/17/25 16:25 07/17/25 18:28 07/17/25 18:28
*Pulse Oximetry
SaO2: 97
Oxygen Mode of Delivery: Room air
Patient hypoxic: no
*Critical Care Note
Total Time (30-74mins, 75-104mins- exclusive of procedures): Not Applicable
ED Attending Note
-
Portions of this chart may have been created with voice recognition software.� Occasional wrong word or��sound alike� substitutions may have occurred due to the inherent limitations of voice recognition software.
Discharge Plan
Departure
Patient Disposition: Home (Routine Discharge)
Date of Disposition: 07/17/25
Time of Disposition: 18:38
Patient with high blood pressure during this ER visit?: Yes
Condition: Good
Discharge Problem:
Paresthesia, Atrial fibrillation
Instructions: Paresthesia (DC), BLOOD PRESSURE
Prescriptions:
No Action
losartan 50 mg Tablet
50 mg PO HS
rosuvastatin 5 mg Tablet
5 mg PO HS
Eliquis 5 mg Tablet
5 mg PO BID Qty: 60 11RF
carvedilol 6.25 mg Tablet
6.25 mg PO BID Qty: 60 11RF
Referrals:
Hien Ortiz MD [Family Provider, Family Practice] - Call in 1-3 days for appt
Interventions
Interventions:
*Risk Screen - Suicide Last Done: 07/17/25 15:50
*General Assessment Last Done: 07/17/25 15:50
*Neglect/Abuse Screening Last Done: 07/17/25 15:50
*ED- Fall Risk Assessment Last Done: 07/17/25 16:20
*ED COVID-19 Vaccine History Last Done: 07/17/25 15:50
*Nursing Disposition Last Done: 07/17/25 18:45
ED- Neurological Assessment Last Done: 07/17/25 16:18
Discharge Date and Time
Discharge Date/Time: 07/17/25 18:46
Print Language: CROATIAN
[2025-07-17 16:32] LABS: Hematocrit 46.3 % (39.0-52.0); Hemoglobin 15.8 g/dL (13.0-18.0); Mean Corp Hgb Conc. 34.1 g/dL (33.0-37.0); Mean Corpuscular Volume 87.2 fL (80.0-94.0); Nucleated Red Blood Cells % 0 % (-); Platelet Count 214 10^3/uL (130-400); Red Cell Dist. Width 13.1 % (11.5-14.5)
[2025-07-17 16:40] LABS: INR 1.15; PT 15.0 Sec (11.4-14.6)
[2025-07-17 16:41] LABS: APTT 30.1 Sec (23.4-35.0)
[2025-07-17 16:47] LABS: ALT (SGPT) 32 U/L (0-50); AST (SGOT) 26 U/L (17-59); Albumin 4.5 g/dl (3.5-5.0); Alkaline Phosphatase 52 U/L (38-126); Blood Urea Nitrogen 17 mg/dl (9-20); Calcium 9.7 mg/dl (8.4-10.2); Carbon Dioxide 26 mmol/L (22-30); Chloride 107 mmol/L (98-107); Estimated Creatinine Clearance 87 ml/min; Glucose 87 mg/dl (70-99); Potassium 4.5 mmol/L (3.5-5.1); Sodium 139 mmol/L (135-145); Total Protein 7.5 g/dl (6.3-8.2); eGFR > 60.00
[2025-07-17 18:28] VITALS: BP 148/86
== END 2025-07-17 18:46 | disposition home or self-care (01) ==
LOC: EMR 15:45
PROVIDERS: EMERGENCY PHYSICIAN Emergency Medicine; FAMILY PHYSICIAN Family Medicine
DX: R20.2 Paresthesia of skin (principal); I48.91 Unspecified atrial fibrillation; I49.1 Atrial premature depolarization; I10 Essential (primary) hypertension; E78.00 Pure hypercholesterolemia, unspecified; Z79.01 Long term (current) use of anticoagulants
CPT/HCPCS: 99284; 70450; 80053; 85025; 85610; 85730; 93005

== ENCOUNTER → 2025-07-19 09:47 | Outpatient (REF) | payer MEDICARE, SELFPAY ==
[2025-07-19 10:18] LABS: Hematocrit 44.3 % (39.0-52.0); Hemoglobin 15.2 g/dL (13.0-18.0); Mean Corp Hgb Conc. 34.3 g/dL (33.0-37.0); Mean Corpuscular Volume 87.0 fL (80.0-94.0); Nucleated Red Blood Cells % 0 % (-); Platelet Count 197 10^3/uL (130-400); Red Cell Dist. Width 12.9 % (11.5-14.5)
[2025-07-19 10:37] LABS: Glycohemoglobin (HgbA1c) 6.4 % (4.0-5.6)
[2025-07-19 10:44] LABS: ALT (SGPT) 25 U/L (0-50); AST (SGOT) 19 U/L (17-59); Albumin 4.2 g/dl (3.5-5.0); Alkaline Phosphatase 51 U/L (38-126); Blood Urea Nitrogen 16 mg/dl (9-20); Calcium 9.1 mg/dl (8.4-10.2); Carbon Dioxide 26 mmol/L (22-30); Chloride 106 mmol/L (98-107); Glucose 124 mg/dl (70-99); HDL Cholesterol 39 mg/dl; LDL Cholesterol, Calculated 41 mg/dl; Potassium 4.5 mmol/L (3.5-5.1); Sodium 138 mmol/L (135-145); Total Protein 6.9 g/dl (6.3-8.2); Very Low Density Lipoprotein 11 mg/dl (0-30); eGFR > 60.00
[2025-07-19 11:12] LABS: TSH 1.06 uIU/ml (0.47-4.68)
== END ==
LOC: REG 09:47
PROVIDERS: ATTENDING PHYSICIAN Family Medicine
DX: R73.03 Prediabetes (principal); I10 Essential (primary) hypertension; E78.5 Hyperlipidemia, unspecified; Z00.00 Encounter for general adult medical examination without abnormal findings; E87.5 Hyperkalemia
CPT/HCPCS: 36415; 80053; 80061; 83036; 84443; 85025

== ENCOUNTER → 2025-08-08 08:13 | Outpatient (REF) | payer MEDICARE, SELFPAY ==
[2025-08-08 10:32] LABS: ALT (SGPT) 32 U/L (0-50); AST (SGOT) 27 U/L (17-59); Albumin 4.5 g/dl (3.5-5.0); Alkaline Phosphatase 48 U/L (38-126); Blood Urea Nitrogen 18 mg/dl (9-20); Calcium 9.4 mg/dl (8.4-10.2); Carbon Dioxide 24 mmol/L (22-30); Chloride 108 mmol/L (98-107); Glucose 124 mg/dl (70-99); Potassium 4.9 mmol/L (3.5-5.1); Sodium 139 mmol/L (135-145); Total Protein 7.4 g/dl (6.3-8.2); eGFR > 60.00
== END ==
LOC: REG 08:13
PROVIDERS: ATTENDING PHYSICIAN Family Medicine
DX: R17 Unspecified jaundice (principal)
CPT/HCPCS: 36415; 80053

== ENCOUNTER → 2025-08-20 14:22 | Outpatient (REF) | payer MEDICARE, SELFPAY | LOC: PAVMRI 14:22 | PROVIDERS: ATTENDING PHYSICIAN Family Medicine | DX: G93.9 Disorder of brain, unspecified (principal); R90.89 Other abnormal findings on diagnostic imaging of central nervous system | CPT/HCPCS: 70553; A9575 ==

== ENCOUNTER → 2025-08-30 11:14 | Outpatient (REF) | payer MEDICARE, SELFPAY | LOC: DHSLP 11:14 | PROVIDERS: ATTENDING PHYSICIAN Internal Medicine; FAMILY PHYSICIAN Family Medicine; REFERRING PHYSICIAN Internal Medicine Critical Care Medicine | DX: G47.33 Obstructive sleep apnea (adult) (pediatric) (principal) | CPT/HCPCS: 95800 ==

== ENCOUNTER → 2025-10-24 08:23 | Outpatient (REF) | payer MEDICARE, SELFPAY ==
[2025-10-24 09:27] LABS: ALT (SGPT) 37 U/L (0-50); AST (SGOT) 27 U/L (17-59); Albumin 4.6 g/dl (3.5-5.0); Alkaline Phosphatase 56 U/L (38-126); Blood Urea Nitrogen 20 mg/dl (9-20); Calcium 9.7 mg/dl (8.4-10.2); Carbon Dioxide 29 mmol/L (22-30); Chloride 104 mmol/L (98-107); Glucose 126 mg/dl (70-99); Potassium 5.3 mmol/L (3.5-5.1); Sodium 139 mmol/L (135-145); Total Protein 7.7 g/dl (6.3-8.2); eGFR > 60.00
[2025-10-24 09:46] LABS: Glycohemoglobin (HgbA1c) 6.5 % (4.0-5.9)
== END ==
LOC: REG 08:23
PROVIDERS: ATTENDING PHYSICIAN Family Medicine
DX: R73.03 Prediabetes (principal)
CPT/HCPCS: 36415; 80053; 83036